=== PATIENT | male | born 1975 | race Caucasian/White ===

== ENCOUNTER 2024-02-24 00:14 | Emergency (ER) | payer BC ==
[~2024-02-24] VITALS: Ht 182.9 cm; Wt 80.9 kg
[~2024-02-24 00:14] MED LIST: ESCI20TA PO
[2024-02-24] MEDS ORDERED: CITA20TA27 PO (00:45)
[2024-02-24] MEDS ORDERED: ATOR20TA66 PO (00:45)
[2024-02-24] MEDS ORDERED: LISI10TA27 PO (00:45)
[2024-02-24] MEDS ORDERED: DOXY100C43 PO (01:10)
[2024-02-24] MEDS: LIDOcaine 1% (10mg/ml)w/preservative inj. 20ml MDV SQ ONE (01:28)
[2024-02-24] MEDS: ceFAZolin 1gm IM kit IM ONE (01:30)
[2024-02-24 02:23] VITALS: BP 128/65; PULSE 69; RESP 18; TEMP 98.1; O2SAT 99
== END 2024-02-24 02:25 | disposition home or self-care (01) ==
LOC: ER 00:15
DX: S63.125A Dislocation of interphalangeal joint of left thumb, initial encounter (principal); Z79.899 Other long term (current) drug therapy; Z72.89 Other problems related to lifestyle; W18.39XA Other fall on same level, initial encounter; Y93.89 Activity, other specified; Y92.89 Other specified places as the place of occurrence of the external cause; Y99.8 Other external cause status
CPT/HCPCS: 26770; 73120; 73130; 96372; 99284; J0690; J3490; A6449